=== PATIENT | female | born 1995 | race Caucasian/White ===

== ENCOUNTER 2018-05-22 04:11 | Emergency (ER) | payer BC ==
[~2018-05-22] VITALS: Ht 160 cm; Wt 136.1 kg
[2018-05-22 04:14] VITALS: BP 170/119
[2018-05-22] MEDS ORDERED: KETOROLAC TROMETHAMINE INJ 60 MG/2 ML VIAL IM ONE (04:30)
[2018-05-22] MEDS ORDERED: ONDANSETRON 4 MG TAB.RAPDIS SL ONE (04:30)
[2018-05-22] MEDS ORDERED: ONDANSETRON 4 MG TAB.RAPDIS ONE (04:42)
[2018-05-22] MEDS ORDERED: KETOROLAC TROMETHAMINE INJ 30 MG/ML VIAL ONE (04:42)
[2018-05-22] MEDS ORDERED: oxyCODONE/APAP (5/325 MG) 1 UDTAB TABLET ONE (05:20)
[2018-05-22] MEDS ORDERED: oxyCODONE/APAP (5/325 MG) 1 UDTAB TABLET PO ONE (05:30)
== END 2018-05-22 05:54 | disposition home or self-care (01) ==
LOC: ER 04:14
DX: G43.909 Migraine, unspecified, not intractable, without status migrainosus (principal); J45.909 Unspecified asthma, uncomplicated; Z96.652 Presence of left artificial knee joint; Z90.89 Acquired absence of other organs
CPT/HCPCS: J1885; Q0162